=== PATIENT | male | born 1960 | race Caucasian/White ===

== ENCOUNTER 2017-09-21 13:16 | Emergency (ER) | payer BC ==
[2017-09-21 13:59] VITALS: BP 107/63
--- NOTE | 2017-09-21 14:11 | UC ---
Back Pain HPI - HPI Summary HPI Summary: Pt presents with LBP that started last night after bending down to get something for a cabinet. When he went to stand back up straight, he felt a pull in his lower back. He took tylenol last night with no relief. He avoids NSAIDs due to his coumadin. Denies hx of injury, fever, chills, chest pain, SOB, abdominal pain, N/V/D/C, numbness/tingling, radiation, or loss of bowel/bladder control. He tells me that he has permanent weakness and drop foot in his left leg due to previous leg surgery for PAD. - History of Current Complaint Chief Complaint: UCLowerExtremity Stated Complaint: LOW BACK PAIN Time Seen by Provider: 09/21/17 14:10 Hx Obtained From: Patient Onset/Duration: Sudden Onset Timing: Constant Severity Initially: Moderate Severity Currently: Moderate Pain Intensity: 7 Pain Scale Used: 0-10 Numeric Character: Dull, Aching, Spasmodic, Stiffness Aggravating Factor(s): Movement, Lifting Alleviating Factor(s): Rest - Allergies/Home Medications Allergies/Adverse Reactions: Allergies Allergy/AdvReac Type Severity Reaction Status Date / Time Adhesive Tape [Plastic Tape] Allergy Rash Verified 09/21/17 13:50 Clopidogrel [From Plavix] AdvReac Headache Verified 09/21/17 13:50 Home Medications: Home Medications Aspirin [Aspirin 81 MG TAB] 1 tab DAILY 09/21/17 [History Confirmed 09/21/17] PMH/Surg Hx/FS Hx/Imm Hx Cardiovascular History: Hypertension Other Cardiovascular History: PAD - Surgical History Surgical History: Yes Surgery Procedure, Year, and Place: Lower extremities arterial bypass 04/2015. BLE STENTS/BYPASS - Social History Alcohol Use: None Substance Use Type: Heroin, Marijuana Substance Use Comment - Amount & Last Used: last 09/18/17 Smoking Status (MU): Heavy Every Day Tobacco Smoker Type: Cigarettes Amount Used/How Often: 1 PPD - Immunization History Most Recent Influenza Vaccination: no Review of Systems Constitutional: Negative Skin: Negative Respiratory: Negative Cardiovascular: Negative Gastrointestinal: Negative Musculoskeletal: Other: - LBP Neurological: Negative Psychological: Negative All Other Systems Reviewed And Are Negative: Yes Physical Exam Triage Information Reviewed: Yes Appearance: Well-Appearing, No Pain Distress, Thin Vital Signs: Initial Vital Signs Temp 98.7 F 09/21/17 13:52 Pulse 92 09/21/17 13:52 Resp 16 09/21/17 13:52 BP 107/63 09/21/17 13:52 Pulse Ox 96 09/21/17 13:52 Vital Signs Reviewed: Yes Neck: Positive: Supple, Nontender, No Lymphadenopathy Respiratory: Positive: Chest non-tender, Lungs clear, Normal breath sounds Cardiovascular: Positive: RRR, No Murmur Musculoskeletal: Positive: Strength Intact - B/L LEs, ROM Intact - B/L LEs, No Edema, Other: - TTP over lumbar paraspinal muscles. Positive SLR on right side. Negative OLIVERIO for back of groin pain. Neurological: Positive: Alert, Other: - L3-S1 intact b/l Psychological: Positive: Age Appropriate Behavior Skin: Negative: rashes Back Pain Course/Dx - Course Course Of Treatment: Low back strain. Advised rest and heat. Continue taking tylenol. Rx for lidocaine cream to use on area as needed. 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 - Differential Dx/Diagnosis Differential Diagnosis/HQI/PQRI: Herniated Disc, Strain, Sprain Provider Diagnoses: Low back strain Discharge - Discharge Plan Condition: Stable Disposition: HOME Prescriptions: Lidocaine 5% OINT* 1 applic TOPICAL BID PRN #30 gm PRN Reason: Pain Patient Education Materials: Low Back Strain (ED), Lower Back Exercises (ED) Forms: *Work Release Referrals: Leonid Cardoza MD [Primary Care Provider] - Additional Instructions: If you develop a fever, SOB, chest pain, radiation of pain, numbnes/tingling, new or worsening symptoms - please call your PCP or go to the ED.
== END 2017-09-21 14:29 | disposition home or self-care (01) ==
LOC: UCCORT 13:16
DX: S33.5XXA Sprain of ligaments of lumbar spine, initial encounter (principal); X50.0XXA Overexertion from strenuous movement or load, initial encounter; Y93.89 Activity, other specified; Y92.9 Unspecified place or not applicable; Y99.9 Unspecified external cause status; Z72.0 Tobacco use; F12.90 Cannabis use, unspecified, uncomplicated; F11.90 Opioid use, unspecified, uncomplicated
CPT/HCPCS: 99212; G0463

== ENCOUNTER 2019-04-30 17:16 | Emergency (ER) | payer BC, OTHER ==
--- NOTE | 2019-04-30 17:27 | UC ---
Lower Extremity/Ankle HPI - HPI Summary HPI Summary: 58 yo male presents accompanied by his daughter with right lower leg wound. He tells me that 2 months ago his dog scratched his right lower leg and he developed an infection. He saw his PCP and was placed on an anbx and had dressing changes. It improved, but never resolved. He saw his PCP for dressing changes and last time was about 3-4 weeks ago. Since that time the wound has not changed much, but he has developed medial ankle pain and difficulty moving his ankle. Pain is increased with ambulation and weight bearing. He denies fever , chills. He has a hx of PAD, LE stents, and CAD. - History of Current Complaint Stated Complaint: RT LEG INJ Time Seen by Provider: 04/30/19 17:27 Hx Obtained From: Patient, Family/Bellows Tester - Allergies/Home Medications Allergies/Adverse Reactions: Allergies Allergy/AdvReac Type Severity Reaction Status Date / Time Adhesive Tape [Plastic Tape] Allergy Rash Verified 09/21/17 13:50 clopidogrel [From Plavix] Allergy Headache Verified 04/30/19 17:34 Home Medications: Home Medications Rivaroxaban TAB(*) [Xarelto 10 mg (*)] 10 mg PO DAILY 04/30/19 [History Confirmed 04/30/19] PMH/Surg Hx/FS Hx/Imm Hx Cardiovascular History: Cardiac Disease Respiratory History: COPD - Surgical History Surgical History: Yes Surgery Procedure, Year, and Place: Lower extremities arterial bypass 04/2015. BLE STENTS/[facility]PASS - Family History Known Family History: Positive: Unknown - Social History Lives: With Family Alcohol Use: None Substance Use Type: Heroin, Marijuana Substance Use Comment - Amount & Last Used: last 09/18/17 Smoking Status (MU): Heavy Every Day Tobacco Smoker Type: Cigarettes Amount Used/How Often: 1 PPD - Immunization History Most Recent Influenza Vaccination: no Review of Systems All Other Systems Reviewed And Are Negative: Yes Constitutional: Positive: Negative Skin: Positive: Other - Leg wound Respiratory: Positive: Negative Cardiovascular: Positive: Negative Neurovascular: Positive: Negative Neurological: Positive: Negative Psychological: Positive: Negative Physical Exam - Summary Physical Exam Summary: GENERAL: NAD. WDWN. No pain distress. SKIN: RIGHT LOWER LEG: Distal medial aspect with 5.0cm area of ulcerated tissue with yellow matter within. Erythema and brawny appearance up to proximal 1/3 lower leg. NECK: Supple. Nontender. No lymphadenopathy. CHEST: No accessory muscle use. Breathing comfortably and in no distress. CV: Pulses intact. Cap refill <2seconds MSK: RIGHT ANKLE: TTP about medial malleolus and pain with flexion and inversion of the ankle. NEURO: Alert. PSYCH: Age appropriate behavior. Triage Information Reviewed: Yes Vital Signs: Vital Signs: Temp Pulse Resp BP Pulse Ox 98.0 F 93 20 112/72 98 04/30/19 17:28 04/30/19 17:28 04/30/19 17:28 04/30/19 17:28 04/30/19 17:28 Vital Signs Reviewed: Yes Lower Extremity Course/Dx - Course Course Of Treatment: Given his comorbidities, non-healing wound, and now increased pain - I am suspicious for osteomyelitis. I believe he will require IV antibiotics as well as advanced imaging to determine the extent of his wound. He may also benefit from inpatient wound care or rehab type facility. I asked Dr. Kasper to examine the wound and he agrees with the above. I discussed this with the pt and recommended that he go to the ER for further eval. He and his daughter prefer that he go to [facility] in [place] as this is where pt has had prior surgeries and procedures and they have his medical records. The wound was bandaged with telfa prior to discharge. - Differential Dx/Diagnosis Provider Diagnosis: Wound of right lower extremity Discharge - Sign-Out/Discharge Documenting (check all that apply): Patient Departure All imaging exams completed and their final reports reviewed: No Studies - Discharge Plan Condition: Stable Disposition: HOME-RECOMMEND TO ED Forms: *Work Release Referrals: Leonid Cardoza MD [Primary Care Provider] - Additional Instructions: Your leg is concerning for infection spreading into the bone. I recommend that you go to [facility] in [place] for further evaluation and treatment as they have your medical records. - Billing Disposition and Condition Condition: STABLE Disposition: Home-Recommend to ED - Attestation Statements Provider Attestation: Per institutional requirements, I have reviewed the chart, however, I was not consulted specifically or made aware of this patient by the midlevel provider. I did not personally evaluate, interact with , or disposition this patient.
[2019-04-30 17:34] VITALS: BP 112/72
== END 2019-04-30 17:57 | disposition home health service (06) ==
LOC: UCCORT 17:16
DX: T14.8XXA Other injury of unspecified body region, initial encounter (principal); W54.8XXA Other contact with dog, initial encounter; Y92.9 Unspecified place or not applicable; F17.210 Nicotine dependence, cigarettes, uncomplicated
CPT/HCPCS: 99212; G0463